=== PATIENT | female | born 1995 | race Two or more races ===

== ENCOUNTER 2020-11-17 11:26 | Observation (INO) | payer MEDICAID | END 2020-11-17 13:05 | disposition home or self-care (01) | LOC: LDRP 11:26 | PROVIDERS: ADMIT Specialist; ATTEND Specialist | DX: O24.419 Gestational diabetes mellitus in pregnancy, unspecified control (principal); Z3A.37 37 weeks gestation of pregnancy | CPT/HCPCS: 59025; 76818; 81002; 82948; 82962; G0378 ==

== ENCOUNTER 2020-11-21 20:13 | Observation (INO) | payer MEDICAID ==
[~2020-11-21] VITALS: Ht 162.6 cm; Wt 90.3 kg
[2020-11-21] MEDS ORDERED: PREN1TAB52 PO (21:22)
== END 2020-11-21 21:55 | disposition home or self-care (01) ==
LOC: LDRP 20:13
PROVIDERS: ADMIT Specialist; ATTEND Specialist
DX: O24.419 Gestational diabetes mellitus in pregnancy, unspecified control (principal); Z3A.37 37 weeks gestation of pregnancy
CPT/HCPCS: 59025; 76818; 81002; 82948; 82962; G0378

== ENCOUNTER 2020-11-24 09:10 | Observation (INO) | payer MEDICAID ==
[~2020-11-24 09:10] MED LIST: PREN1TAB52 PO
== END 2020-11-24 11:10 | disposition home or self-care (01) ==
LOC: LDRP 09:10
PROVIDERS: ADMIT Obstetrics & Gynecology; ATTEND Obstetrics & Gynecology
DX: O24.419 Gestational diabetes mellitus in pregnancy, unspecified control (principal); Z3A.38 38 weeks gestation of pregnancy
CPT/HCPCS: 59025; 76818; 81002; 82948; 82962; G0378

== ENCOUNTER 2020-11-27 13:08 | Observation (INO) | payer MEDICAID | END 2020-11-27 14:15 | disposition home or self-care (01) | LOC: LDRP 13:08 | PROVIDERS: ADMIT Obstetrics & Gynecology; ATTEND Obstetrics & Gynecology | DX: O24.419 Gestational diabetes mellitus in pregnancy, unspecified control (principal); Z3A.38 38 weeks gestation of pregnancy | CPT/HCPCS: 59025; 76818; 81002; 82948; 82962; G0378 ==

== ENCOUNTER 2020-11-30 10:49 | Observation (INO) | payer MEDICAID | END 2020-11-30 12:08 | disposition home or self-care (01) | LOC: LDRP 10:49 | PROVIDERS: ADMIT Obstetrics & Gynecology; ATTEND Obstetrics & Gynecology | DX: O24.419 Gestational diabetes mellitus in pregnancy, unspecified control (principal); O62.9 Abnormality of forces of labor, unspecified; Z3A.39 39 weeks gestation of pregnancy | CPT/HCPCS: 59025; 81002; 82948; 82962; G0378 ==

== ENCOUNTER 2020-11-30 20:15 | Observation (INO) | payer MEDICAID | END 2020-11-30 22:50 | disposition home or self-care (01) | LOC: LDRP 20:15 | PROVIDERS: ADMIT Obstetrics & Gynecology; ATTEND Obstetrics & Gynecology | DX: O62.9 Abnormality of forces of labor, unspecified (principal); O26.853 Spotting complicating pregnancy, third trimester; Z3A.39 39 weeks gestation of pregnancy | CPT/HCPCS: 59025; 81002; G0378 ==

== ENCOUNTER 2020-12-01 01:49 | Inpatient (IN) | payer MEDICAID ==
[~2020-12-01] VITALS: Ht 30.5 cm; Wt 0.5 kg
[2020-12-01] MEDS ORDERED: hydrOXYzine 25 MG TAB or CAP PO STA ×2 (02:23→03:12)
[2020-12-01] MEDS ORDERED: LACTATED RINGER'S 1,000 ML IV ONE (02:30)
[2020-12-01] MEDS ORDERED: hydrOXYzine HCL 25 MG/ML VL IM STA (02:54)
[2020-12-01] MEDS ORDERED: DERMOPLAST 60ML BOTTLE TOP PRN (07:45)
[2020-12-01] MEDS ORDERED: PHISODERM TOP SOLN 240ML BTL TOP PRN (07:45)
[2020-12-01] MEDS ORDERED: LACT. RINGERS/OXYTOCIN 20UNITS 1,000 ML IV SCH (07:45)
[2020-12-01] MEDS ORDERED: PROMETHAZINE HCL 25 MG/ML 1ML IV PRN (07:45)
[2020-12-01] MEDS ORDERED: WITCH HAZEL-GLYCERIN PAD TOP PRN (07:45)
[2020-12-01] MEDS ORDERED: LACTATED RINGER'S 1,000 ML IV SCH (07:45)
[2020-12-01] MEDS ORDERED: LACT. RINGERS/OXYTOCIN 20UNITS 1,000 ML IV ONE (07:45)
[2020-12-01] MEDS ORDERED: BUTORPHANOL TARTRATE 2 MG/1 ML VIAL IV PRN (07:45)
[2020-12-01 08:30] LABS: Basophils # (auto) 0 10 ^3/uL (0-0.2); Basophils % (auto) 0.1 % (0.0-2.0); Eosinophils # (auto) 0 10 ^3/uL (0-0.8); Hematocrit 34.9 % (36.0-46.0); Hemoglobin 12.1 g/dL (12.2-16.2); Lymphocytes % (auto) 6.1 % (10.0-50.0); Mean Corpuscular Hemoglobin 29.6 pg (28.0-32.0); Mean Corpuscular Hgb Conc. 34.6 g/dL (32.0-36.0); Mean Corpuscular Volume 85.6 fL (80.0-100.0); Monocytes % (auto) 5.7 % (0.0-12.0); Neutrophils # (auto) 14.9 10 ^3/uL (1.6-8.6); Neutrophils % (auto) 88.1 % (37.0-80.0); Platelet Count (auto) 235 10^3/uL (140-450); Red Blood Cells 4.07 10^6/uL (4.0-5.20); Red Cell Distribution Width 14.4 % (11.8-14.3); White Blood Cell 16.9 10^3/uL (4.4-10.8)
[2020-12-01 08:46] LABS: INR 0.92 (0.9-1.15); Partial Thromboplastin Time 27.1 sec (23.0-31.2)
[2020-12-01 08:50] LABS: Albumin 2.8 g/dL (3.4-5.0); Calcium 9.4 mg/dL (8.5-10.1); Potassium 3.6 mmol/L (3.5-5.1); Uric Acid 4.8 mg/dL (2.6-6.0)
[2020-12-01 08:53] LABS: BUN/Creatinine Ratio 11.1; Bilirubin, Total 0.4 mg/dL (0.2-1.0); Total Protein 7.2 g/dL (6.4-8.2)
[2020-12-01] MEDS ORDERED: LIDOCAINE 2%HCL (LOCAL ANESTH.) INJ 20ML MDV IJ ONE (11:00)
[2020-12-01] MEDS ORDERED: ePHEDrine SULFATE 50 MG/ML AMP ONE (11:23)
[2020-12-01] MEDS ORDERED: ROPIVACAINE HCL 400mg/200ml BAG (2mg/ml) ONE (11:23)
[2020-12-01] MEDS ORDERED: fentaNYL CITRATE 100 MCG/2 ML VL ONE ×2 (11:23→11:29)
[2020-12-01] MEDS ORDERED: ROPIVACAINE HCL 200 ML EPI SCH ×2 (11:30→12:30)
[2020-12-01] MEDS ORDERED: fentaNYL CITRATE 100 MCG/2 ML VL IV ONE (11:30)
[2020-12-01] MEDS ORDERED: ePHEDrine SULFATE 50 MG/ML AMP IV ONE (11:30)
[2020-12-01] MEDS ORDERED: LIDOCAINE HCL 2 %PF INJ 10ML AMP IJ ONE (11:51)
[2020-12-01 13:56] LABS: Urine Bacteria FEW /hpf (None Seen); Urine Blood 1+ /uL (Negative); Urine Specific Gravity 1.007 (1.001-1.035); Urine WBC <1 /hpf (0 - 5)
[2020-12-01 14:03] LABS: Alcohol, Urine < 3.0 mg/dL (0-10); Amphetamine Screen, Urine NEGATIVE (NEGATIVE); Barbiturate Scree,Urine NEGATIVE (NEGATIVE); Benzodiazephine Screen, Urine NEGATIVE (NEGATIVE); Cannabinoid Screen, Urine NEGATIVE (NEGATIVE); Cocaine Screen, Urine NEGATIVE (NEGATIVE); Opiate Scree,Urine NEGATIVE (NEGATIVE); Phencyclidine Screen, Urine NEGATIVE (NEGATIVE)
[2020-12-01] MEDS ORDERED: ACETAMINOPHEN 325 MG TAB PO PRN (15:00)
[2020-12-01] MEDS: ceFAZolin 1GM/50ML 50 ML IV SCH ×2 (15:12→23:20)
[2020-12-01] MEDS ORDERED: D5W/LACTATED RINGERS 1,000 ML IV SCH (17:45)
[2020-12-01] MEDS ORDERED: IBUPROFEN 600 MG TAB PO PRN (23:00)
[2020-12-02 03:06] VITALS: BP 108/61
[2020-12-02] MEDS ORDERED: DEXTROSE (ORAL) 12.5g/31ml 0.4g/ml GEL PO ONE (05:30)
[2020-12-02] MEDS: ceFAZolin 1GM/50ML 50 ML IV SCH ×3 (07:17→23:02)
[2020-12-02 08:06] LABS: RPR Non Reactive (Non Reactive)
[2020-12-02] MEDS: DOCUSATE CALCIUM 240 MG CAP PO SCH (10:10)
[2020-12-02 11:00] VITALS: BP 120/84
[2020-12-02 15:00] VITALS: BP 120/61
[2020-12-02 18:50] VITALS: BP 120/62
[2020-12-02 22:53] VITALS: BP 111/68
[2020-12-03 02:59] VITALS: BP 124/67
[2020-12-03] MEDS: ceFAZolin 1GM/50ML 50 ML IV SCH (07:21)
[2020-12-03] MEDS: DOCUSATE CALCIUM 240 MG CAP PO SCH (10:30)
[2020-12-03 10:38] VITALS: BP 125/77
== END 2020-12-03 11:08 | disposition home or self-care (01) | DRG 560 ==
LOC: LDRP 01:49 → OBSVTOIN 01:49 → LDRP 10:43
PROVIDERS: ADMIT Obstetrics & Gynecology; ATTEND Obstetrics & Gynecology
PROC: 10907ZC Drainage of Amniotic Fluid, Therapeutic from Products of Conception, Via Natural or Artificial Opening (ICD-10-PCS; principal; 2020-12-01)
PROC: 10E0XZZ Delivery of Products of Conception, External Approach (ICD-10-PCS; 2020-12-01)
PROC: 0HQ9XZZ Repair Perineum Skin, External Approach (ICD-10-PCS; 2020-12-01)
DX: O24.420 Gestational diabetes mellitus in childbirth, diet controlled (principal); O71.4 Obstetric high vaginal laceration alone; O76 Abnormality in fetal heart rate and rhythm complicating labor and delivery; Z20.822 Contact with and (suspected) exposure to COVID-19; Z37.0 Single live birth; Z3A.39 39 weeks gestation of pregnancy
CPT/HCPCS: 36415; 59025; 59409; 62282; 80053; 80307; 81001; 81002; 82948; 82962; 84550; 85025; 85610; 85730; 86592; 86850; 86900; 86901; 87426; 94762; 96360; 96361; 96365; 96366; 96374; G0378; J0690; J2590